=== PATIENT | female | born 1945 | race Caucasian/White ===

== ENCOUNTER 2022-03-19 19:47 | Inpatient (IN) | payer MEDICARE, BC ==
[2022-03-19 21:06] LABS: #Eosinphils 0.2 thou/uL (0.0-0.7); #Lymphocytes 1.9 thou/uL (1.20-3.40); #Monocytes 0.7 thou/uL (0.11-0.59); #Neutrophils 9.7 thou/uL (1.40-6.50); %Basophils 0.4 % (0.0-1.0); %Eosinophils 1.9 % (0.0-10.0); %Lymphocytes 14.8 % (21.0-51.0); %Monocytes 5.5 % (0.0-10.0); %Neutrophils 77.5 % (42.0-75.0); Hemoglobin 12.5 g/dL (12.0-16.0); Mean Corpuscular HGB CONC 31.7 g/dL (32.0-36.0); Mean Corpuscular Hemoglobin 31.2 pg (27.0-31.0); Mean Corpuscular Volume 98.4 fl (78.0-98.0); Mean Platelet Volume 7.1 fL (7.4-10.4); Platelet Count 387 10x3/uL (130-400); RBC Distribution Width 13.2 % (11.5-14.5); White Blood Cell (WBC) Count 12.5 10x3/uL (4.8-10.8)
[2022-03-19 21:24] LABS: ALT (SGPT) Less than 7 U/L (8-55); AST (SGOT) 13 U/L (5-34); Albumin 2.9 g/dL (3.4-4.8); Alkaline Phosphatase 85 U/L (40-110); Anion Gap 10 mmol/L (10-20); BUN (Urea Nitrogen) 8 mg/dL (9.8-20.1); Bilirubin, Total 0.6 mg/dL (0.2-1.2); Calc. Creatinine Clearance 0 mL/min (70-130); Calcium 8.9 mg/dL (7.8-10.44); Carbon Dioxide 25 mmol/L (23-31); Chloride 109 mmol/L (98-107); Estimated GFR 74; Globulin 3.6 g/dL (2.4-3.5); Glucose 82 mg/dL (83-110); Potassium 2.8 mmol/L (3.5-5.1); Protein, Total 6.5 g/dL (5.8-8.1); Sodium 141 mmol/L (136-145)
[2022-03-19 21:46] LABS: CKMB 0.7 ng/mL (0-6.6)
[2022-03-19] MEDS ORDERED: Magnesium 2 GM/50 ML BAG (IN WATER) ONE (21:59)
[2022-03-19] MEDS ORDERED: NS 0.9% w/ 40 MEQ KCL 1,000 ML IV SCH (22:15)
[2022-03-19 22:48] LABS: Bacteria/HPF 2+ HPF (None Seen); Bilirubin Negative (Negative); Blood, Urine Negative (Negative); Clarity Turbid (Clear); Glucose, Urine (Dipstick) Normal (Negative); Ketone, Urine Trace mg/dL (Negative); Leukocyte 75 Leu/uL (Negative); Nitrite Negative (Negative); Protein, Urine (Dipstick) 30 mg/dL (Neg-Trace); RBC/HPF 0-3 HPF (0-3); Specific Gravity, Urine 1.028 (1.002-1.036); Squamous Epithelial None Seen HPF (0-3); Urobilinogen Normal mg/dL (Less than 2); pH, Urine 5.5 (5.0-9.0)
[2022-03-19 22:55] LABS: Mucous/LPF 2+ LPF (<2+)
[2022-03-19] MEDS ORDERED: Ondansetron PF 4 MG/2 ML Vial IVP PRN (22:58)
[2022-03-19] MEDS ORDERED: Acetaminophen 650 MG Suppository PR PRN (22:58)
[2022-03-19] MEDS ORDERED: Dextrose 5 %-0.45 % NaCl 1,000 ML IV SCH (23:00)
[2022-03-19 23:24] LABS: Amphetamine Not Detected (NotDetected); Barbiturates Screen Not Detected (NotDetected); Benzodiazepine Screen Not Detected (NotDetected); Cocaine Metabolite Screen Not Detected (NotDetected); Methadone Not Detected (NotDetected); Methamphetamine Not Detected (NotDetected); Opiate Screen Not Detected (NotDetected); Oxycodone Screen Not Detected (NotDetected); Phencyclidine (PCP) Not Detected (NotDetected); THC/Cannabinoid Screen Not Detected (NotDetected); Tricyclic Screen Not Detected (NotDetected)
[2022-03-19] MEDS ORDERED: Cefepime 2 GM VIAL ONE (23:56)
[2022-03-20] MEDS ORDERED: Albumin 25% 25 GM/100 ML BOT IVPB SCH (00:30)
[2022-03-20 00:33] VITALS: BMI 29.7
[2022-03-20 00:44] LABS: Troponin I 0.065 ng/mL (< 0.028)
[2022-03-20] MEDS ORDERED: Vancomycin 1.5 GRAM/300 ML BAG 1.5 GM in Premix Bag 1 BAG IVPB SCH (00:45)
[2022-03-20 03:41] LABS: #Eosinphils 0.3 thou/uL (0.0-0.7); #Lymphocytes 1.6 thou/uL (1.20-3.40); #Monocytes 0.7 thou/uL (0.11-0.59); #Neutrophils 9.1 thou/uL (1.40-6.50); %Basophils 0.1 % (0.0-1.0); %Eosinophils 2.2 % (0.0-10.0); %Lymphocytes 13.6 % (21.0-51.0); %Monocytes 6.3 % (0.0-10.0); %Neutrophils 77.9 % (42.0-75.0); Hemoglobin 11.5 g/dL (12.0-16.0); Mean Corpuscular Hemoglobin 31.3 pg (27.0-31.0); Mean Platelet Volume 7.4 fL (7.4-10.4); Platelet Count 290 10x3/uL (130-400); RBC Distribution Width 13.5 % (11.5-14.5); Red Blood Cell (RBC) Count 3.67 mill/uL (4.20-5.40); White Blood Cell (WBC) Count 11.7 10x3/uL (4.8-10.8)
[2022-03-20 03:58] LABS: Troponin I 0.053 ng/mL (< 0.028)
[2022-03-20 04:00] LABS: Anion Gap 11 mmol/L (10-20); BUN (Urea Nitrogen) 8 mg/dL (9.8-20.1); Calc. Creatinine Clearance 82 mL/min (70-130); Calcium 8.2 mg/dL (7.8-10.44); Carbon Dioxide 18 mmol/L (23-31); Chloride 116 mmol/L (98-107); Estimated GFR 81; Glucose 89 mg/dL (83-110); Magnesium 2.4 mg/dL (1.6-2.6); Sodium 141 mmol/L (136-145)
[2022-03-20] MEDS ORDERED: Meropenem 1 GM in Sodium Chloride 0.9% 100 ML IVPB SCH ×3 (06:00→14:00)
[2022-03-20] MEDS ORDERED: Venlafaxine HCl XR 150 MG CAP PO SCH (09:00)
[2022-03-20] MEDS: Aspirin 81 mg Enteric Coated Tablet PO SCH (10:28)
[2022-03-20] MEDS: Bupropion 150 MG XL TAB PO SCH (10:28)
[2022-03-20] MEDS: Rivastigmine 9.5mg/24 Hour PATCH TOP SCH (10:34)
[2022-03-20] MEDS ORDERED: Sodium Chloride 0.9% 500 ML IV SCH ×2 (11:30→12:00)
[2022-03-20 12:34] LABS: #Eosinphils 0.2 thou/uL (0.0-0.7); #Lymphocytes 1.5 thou/uL (1.20-3.40); #Monocytes 0.5 thou/uL (0.11-0.59); #Neutrophils 7.6 thou/uL (1.40-6.50); %Basophils 0.2 % (0.0-1.0); %Eosinophils 2.5 % (0.0-10.0); %Lymphocytes 14.8 % (21.0-51.0); %Monocytes 5.4 % (0.0-10.0); %Neutrophils 77.1 % (42.0-75.0); Mean Corpuscular HGB CONC 31.2 g/dL (32.0-36.0); Mean Corpuscular Hemoglobin 30.8 pg (27.0-31.0); Mean Corpuscular Volume 98.6 fl (78.0-98.0); Platelet Count 336 10x3/uL (130-400); RBC Distribution Width 13.1 % (11.5-14.5); Red Blood Cell (RBC) Count 3.24 mill/uL (4.20-5.40); White Blood Cell (WBC) Count 9.9 10x3/uL (4.8-10.8)
[2022-03-20 12:39] LABS: Lactic Acid 1.1 mmol/L (0.5-2.2)
[2022-03-20 12:44] LABS: Anion Gap 9 mmol/L (10-20); BUN (Urea Nitrogen) 6 mg/dL (9.8-20.1); Calc. Creatinine Clearance 96 mL/min (70-130); Calcium 7.6 mg/dL (7.8-10.44); Carbon Dioxide 22 mmol/L (23-31); Chloride 114 mmol/L (98-107); Estimated GFR 92; Glucose 73 mg/dL (83-110); Magnesium 2.1 mg/dL (1.6-2.6); Sodium 142 mmol/L (136-145)
[2022-03-20 12:48] LABS: Phosphorus 1.8 mg/dL (2.3-4.7)
[2022-03-20] MEDS: Lactated Ringer's 1,000 ML IV SCH (13:41)
[2022-03-20] MEDS ORDERED: Potassium Phosphate 12 MMOL in Sodium Chloride 0.9% 100 ML IVPB SCH (16:45)
[2022-03-20] MEDS: Meropenem 1 GM in Sodium Chloride 0.9% 100 ML IVPB SCH (19:52)
[2022-03-20] MEDS ORDERED: Mirtazapine 15 MG Soltab PO SCH (21:00)
[2022-03-21] MEDS: Lactated Ringer's 1,000 ML IV SCH ×4 (01:36→23:03)
[2022-03-21] MEDS: Meropenem 1 GM in Sodium Chloride 0.9% 100 ML IVPB SCH ×3 (01:36→17:19)
[2022-03-21 05:55] LABS: #Eosinphils 0.2 thou/uL (0.0-0.7); #Lymphocytes 1.4 thou/uL (1.20-3.40); #Monocytes 0.4 thou/uL (0.11-0.59); #Neutrophils 5.5 thou/uL (1.40-6.50); %Basophils 0.2 % (0.0-1.0); %Lymphocytes 18.1 % (21.0-51.0); %Monocytes 5.5 % (0.0-10.0); %Neutrophils 73.2 % (42.0-75.0); Hemoglobin 10.6 g/dL (12.0-16.0); Mean Corpuscular HGB CONC 31.5 g/dL (32.0-36.0); Mean Corpuscular Hemoglobin 30.8 pg (27.0-31.0); Mean Corpuscular Volume 97.7 fl (78.0-98.0); Mean Platelet Volume 7.2 fL (7.4-10.4); Platelet Count 370 10x3/uL (130-400); RBC Distribution Width 13.1 % (11.5-14.5); Red Blood Cell (RBC) Count 3.46 mill/uL (4.20-5.40); White Blood Cell (WBC) Count 7.6 10x3/uL (4.8-10.8)
[2022-03-21 06:19] LABS: Anion Gap 10 mmol/L (10-20); BUN (Urea Nitrogen) 5 mg/dL (9.8-20.1); Calc. Creatinine Clearance 99 mL/min (70-130); Calcium 8.4 mg/dL (7.8-10.44); Carbon Dioxide 23 mmol/L (23-31); Chloride 113 mmol/L (98-107); Estimated GFR 93; Glucose 65 mg/dL (83-110); Magnesium 2.1 mg/dL (1.6-2.6); Potassium 3.5 mmol/L (3.5-5.1); Sodium 142 mmol/L (136-145)
[2022-03-21 08:22] LABS: Troponin I 0.054 ng/mL (< 0.028)
[2022-03-21] MEDS: Aspirin 81 mg Enteric Coated Tablet PO SCH (11:09)
[2022-03-21] MEDS: Bupropion 150 MG XL TAB PO SCH (11:10)
[2022-03-21] MEDS ORDERED: Venlafaxine HCl 37.5 MG TAB PO SCH (12:30)
[2022-03-21] MEDS ORDERED: buPROPion 75 MG TAB PO SCH (12:30)
[2022-03-21] MEDS ORDERED: Venlafaxine HCl XR 75 MG CAP PO SCH (13:00)
[2022-03-21] MEDS: Rivastigmine 9.5mg/24 Hour PATCH TOP SCH (13:17)
[2022-03-21] MEDS ORDERED: Meropenem 1 GM in Sodium Chloride 0.9% 100 ML IVPB SCH (14:00)
[2022-03-21] MEDS: Venlafaxine HCl 37.5 MG TAB PO SCH (20:26)
[2022-03-21] MEDS: buPROPion 75 MG TAB PO SCH (20:26)
[2022-03-22] MEDS: Meropenem 1 GM in Sodium Chloride 0.9% 100 ML IVPB SCH ×3 (01:51→18:15)
[2022-03-22 05:40] LABS: #Eosinphils 0.2 thou/uL (0.0-0.7); #Lymphocytes 1.6 thou/uL (1.20-3.40); #Monocytes 0.5 thou/uL (0.11-0.59); #Neutrophils 3.9 thou/uL (1.40-6.50); %Basophils 0.3 % (0.0-1.0); %Lymphocytes 24.9 % (21.0-51.0); %Monocytes 8.2 % (0.0-10.0); %Neutrophils 62.6 % (42.0-75.0); Hemoglobin 11.1 g/dL (12.0-16.0); Mean Corpuscular Hemoglobin 31.1 pg (27.0-31.0); Mean Corpuscular Volume 97.3 fl (78.0-98.0); Mean Platelet Volume 7.5 fL (7.4-10.4); Platelet Count 216 10x3/uL (130-400); RBC Distribution Width 13.2 % (11.5-14.5); Red Blood Cell (RBC) Count 3.57 mill/uL (4.20-5.40); White Blood Cell (WBC) Count 6.3 10x3/uL (4.8-10.8)
[2022-03-22 05:56] LABS: Anion Gap 11 mmol/L (10-20); BUN (Urea Nitrogen) 4 mg/dL (9.8-20.1); Calc. Creatinine Clearance 113 mL/min (70-130); Calcium 8.2 mg/dL (7.8-10.44); Carbon Dioxide 21 mmol/L (23-31); Chloride 109 mmol/L (98-107); Estimated GFR 96; Glucose 62 mg/dL (83-110); Magnesium 1.9 mg/dL (1.6-2.6); Potassium 3.1 mmol/L (3.5-5.1); Sodium 138 mmol/L (136-145)
[2022-03-22] MEDS ORDERED: Potassium Chloride 20 MEQ TAB PO SCH (09:00)
[2022-03-22] MEDS: buPROPion 75 MG TAB PO SCH ×2 (09:20→21:11)
[2022-03-22] MEDS: Venlafaxine HCl 37.5 MG TAB PO SCH ×2 (09:20→21:11)
[2022-03-22] MEDS: Aspirin 81 mg Enteric Coated Tablet PO SCH (09:20)
[2022-03-22] MEDS: Rivastigmine 9.5mg/24 Hour PATCH TOP SCH (09:21)
[2022-03-22] MEDS: Nystatin 500,000 UNITS/5 ML UDCUP SSW SCH ×3 (12:48→21:11)
[2022-03-22] MEDS: Lactated Ringer's 1,000 ML IV SCH (18:15)
[2022-03-23] MEDS: Meropenem 1 GM in Sodium Chloride 0.9% 100 ML IVPB SCH ×3 (02:13→17:45)
[2022-03-23] MEDS: buPROPion 75 MG TAB PO SCH ×2 (09:22→20:32)
[2022-03-23] MEDS: Aspirin 81 mg Enteric Coated Tablet PO SCH (09:22)
[2022-03-23] MEDS: Nystatin 500,000 UNITS/5 ML UDCUP SSW SCH ×4 (09:22→20:32)
[2022-03-23] MEDS: Venlafaxine HCl 37.5 MG TAB PO SCH ×2 (09:23→20:32)
[2022-03-23] MEDS: Rivastigmine 9.5mg/24 Hour PATCH TOP SCH (09:29)
[2022-03-24] MEDS: Meropenem 1 GM in Sodium Chloride 0.9% 100 ML IVPB SCH ×2 (01:01→09:11)
[2022-03-24] MEDS: Lactated Ringer's 1,000 ML IV SCH ×2 (01:01→03:34)
[2022-03-24] MEDS: Aspirin 81 mg Enteric Coated Tablet PO SCH (08:53)
[2022-03-24] MEDS: buPROPion 75 MG TAB PO SCH ×2 (08:53→21:32)
[2022-03-24] MEDS: Rivastigmine 9.5mg/24 Hour PATCH TOP SCH (08:53)
[2022-03-24] MEDS: Nystatin 500,000 UNITS/5 ML UDCUP SSW SCH ×4 (08:53→21:32)
[2022-03-24] MEDS: Venlafaxine HCl 37.5 MG TAB PO SCH (08:53)
[2022-03-24] MEDS ORDERED: Venlafaxine HCl 25 MG TAB PO SCH (21:00)
[2022-03-24] MEDS: Venlafaxine HCl 25 MG TAB PO SCH (21:32)
[2022-03-25 05:38] LABS: #Eosinphils 0.3 thou/uL (0.0-0.7); #Lymphocytes 1.6 thou/uL (1.20-3.40); #Monocytes 0.6 thou/uL (0.11-0.59); #Neutrophils 3.7 thou/uL (1.40-6.50); %Basophils 0.3 % (0.0-1.0); %Eosinophils 5.5 % (0.0-10.0); %Lymphocytes 25.1 % (21.0-51.0); %Monocytes 9.9 % (0.0-10.0); %Neutrophils 59.2 % (42.0-75.0); Hemoglobin 12.1 g/dL (12.0-16.0); Mean Corpuscular HGB CONC 31.8 g/dL (32.0-36.0); Mean Corpuscular Volume 97.3 fl (78.0-98.0); Mean Platelet Volume 6.9 fL (7.4-10.4); Platelet Count 369 10x3/uL (130-400); RBC Distribution Width 13.6 % (11.5-14.5); Red Blood Cell (RBC) Count 3.92 mill/uL (4.20-5.40); White Blood Cell (WBC) Count 6.3 10x3/uL (4.8-10.8)
[2022-03-25 05:59] LABS: Anion Gap 12 mmol/L (10-20); BUN (Urea Nitrogen) 6 mg/dL (9.8-20.1); Calc. Creatinine Clearance 105 mL/min (70-130); Calcium 8.7 mg/dL (7.8-10.44); Carbon Dioxide 22 mmol/L (23-31); Chloride 106 mmol/L (98-107); Estimated GFR 94; Glucose 73 mg/dL (83-110); Potassium 3.8 mmol/L (3.5-5.1); Sodium 136 mmol/L (136-145)
[2022-03-25] MEDS: buPROPion 75 MG TAB PO SCH ×2 (09:44→22:54)
[2022-03-25] MEDS: Venlafaxine HCl 37.5 MG TAB PO SCH (09:44)
[2022-03-25] MEDS: Rivastigmine 9.5mg/24 Hour PATCH TOP SCH (09:44)
[2022-03-25] MEDS: Aspirin 81 mg Enteric Coated Tablet PO SCH (09:44)
[2022-03-25] MEDS: Nystatin 500,000 UNITS/5 ML UDCUP SSW SCH ×2 (09:44→14:07)
[2022-03-25] MEDS: Venlafaxine HCl 25 MG TAB PO SCH (22:54)
[2022-03-26] MEDS ORDERED: Electrolyte Replacement Protocol 1 EACH FS SCH (08:30)
[2022-03-26] MEDS: Aspirin 81 mg Enteric Coated Tablet PO SCH (08:59)
[2022-03-26] MEDS: buPROPion 75 MG TAB PO SCH ×2 (09:00→21:00)
[2022-03-26] MEDS: Venlafaxine HCl 37.5 MG TAB PO SCH (09:01)
[2022-03-26] MEDS: Rivastigmine 9.5mg/24 Hour PATCH TOP SCH (09:01)
[2022-03-26] MEDS: Multivitamins, Adult 10 ML, Folic Acid 1 MG, Thiamine HCl 100 MG in Dextrose 5 %-0.45 %... IV SCH (15:50)
[2022-03-26] MEDS: Senokot S 8.6-50 MG TAB PO SCH (21:00)
[2022-03-27 07:03] LABS: #Eosinphils 0.3 thou/uL (0.0-0.7); #Lymphocytes 2.2 thou/uL (1.20-3.40); #Monocytes 0.6 thou/uL (0.11-0.59); #Neutrophils 2.9 thou/uL (1.40-6.50); %Basophils 0.7 % (0.0-1.0); %Eosinophils 5.7 % (0.0-10.0); %Lymphocytes 35.8 % (21.0-51.0); %Monocytes 9.3 % (0.0-10.0); %Neutrophils 48.5 % (42.0-75.0); Hemoglobin 11.2 g/dL (12.0-16.0); Mean Corpuscular HGB CONC 32.4 g/dL (32.0-36.0); Mean Corpuscular Hemoglobin 31.3 pg (27.0-31.0); Mean Corpuscular Volume 96.6 fl (78.0-98.0); Mean Platelet Volume 7.1 fL (7.4-10.4); Platelet Count 346 10x3/uL (130-400); Red Blood Cell (RBC) Count 3.59 mill/uL (4.20-5.40)
[2022-03-27 07:24] LABS: ALT (SGPT) 19 U/L (8-55); AST (SGOT) 28 U/L (5-34); Albumin 2.5 g/dL (3.4-4.8); Alkaline Phosphatase 72 U/L (40-110); Anion Gap 11 mmol/L (10-20); BUN (Urea Nitrogen) 7 mg/dL (9.8-20.1); Bilirubin, Total 0.5 mg/dL (0.2-1.2); Calc. Creatinine Clearance 104 mL/min (70-130); Calcium 8.5 mg/dL (7.8-10.44); Carbon Dioxide 22 mmol/L (23-31); Chloride 106 mmol/L (98-107); Estimated GFR 94; Globulin 3.1 g/dL (2.4-3.5); Glucose 70 mg/dL (83-110); Magnesium 1.9 mg/dL (1.6-2.6); Phosphorus 2.2 mg/dL (2.3-4.7); Potassium 3.3 mmol/L (3.5-5.1); Protein, Total 5.6 g/dL (5.8-8.1); Sodium 136 mmol/L (136-145)
[2022-03-27] MEDS ORDERED: Potassium Chloride 20 MEQ TAB PO SCH ×2 (08:00→08:15)
[2022-03-27] MEDS ORDERED: Magnesium 2 GM/50 ML(in water) 2 GM in Premix Bag 1 BAG IVPB SCH (09:00)
[2022-03-27] MEDS: Aspirin 81 mg Enteric Coated Tablet PO SCH (10:10)
[2022-03-27] MEDS: Senokot S 8.6-50 MG TAB PO SCH ×2 (10:10→20:54)
[2022-03-27] MEDS: buPROPion 75 MG TAB PO SCH ×2 (10:11→20:53)
[2022-03-27] MEDS: Multivitamins, Adult 10 ML, Folic Acid 1 MG, Thiamine HCl 100 MG in Dextrose 5 %-0.45 %... IV SCH (14:30)
[2022-03-28 06:36] LABS: #Eosinphils 0.3 thou/uL (0.0-0.7); #Lymphocytes 2.1 thou/uL (1.20-3.40); #Monocytes 0.6 thou/uL (0.11-0.59); #Neutrophils 4.6 thou/uL (1.40-6.50); %Basophils 0.4 % (0.0-1.0); %Eosinophils 4.5 % (0.0-10.0); %Monocytes 8.1 % (0.0-10.0); %Neutrophils 59.9 % (42.0-75.0); Hemoglobin 11.2 g/dL (12.0-16.0); Mean Corpuscular HGB CONC 32.4 g/dL (32.0-36.0); Mean Corpuscular Hemoglobin 31.3 pg (27.0-31.0); Mean Corpuscular Volume 96.4 fl (78.0-98.0); Platelet Count 356 10x3/uL (130-400); Red Blood Cell (RBC) Count 3.58 mill/uL (4.20-5.40); White Blood Cell (WBC) Count 7.6 10x3/uL (4.8-10.8)
[2022-03-28 06:58] LABS: Anion Gap 13 mmol/L (10-20); BUN (Urea Nitrogen) 5 mg/dL (9.8-20.1); Calc. Creatinine Clearance 102 mL/min (70-130); Calcium 8.5 mg/dL (7.8-10.44); Carbon Dioxide 20 mmol/L (23-31); Chloride 109 mmol/L (98-107); Estimated GFR 93; Glucose 70 mg/dL (83-110); Potassium 3.9 mmol/L (3.5-5.1); Sodium 138 mmol/L (136-145)
[2022-03-28 07:22] VITALS: BP 103/55; TEMP 98.4
[2022-03-28] MEDS: buPROPion 75 MG TAB PO SCH (09:00)
[2022-03-28] MEDS: Senokot S 8.6-50 MG TAB PO SCH (09:01)
== END 2022-03-28 12:23 | DRG 177 ==
LOC: ERS 19:47 → ERHOLD 22:36 → NEURO 03-20 02:53 → T4-A 03-25 15:57
PROVIDERS: ADMIT Internal Medicine; ATTEND Internal Medicine
DX: J69.0 Pneumonitis due to inhalation of food and vomit (principal); G93.41 Metabolic encephalopathy; N30.00 Acute cystitis without hematuria; B37.0 Candidal stomatitis; E44.0 Moderate protein-calorie malnutrition; I82.403 Acute embolism and thrombosis of unspecified deep veins of lower extremity, bilateral; Z66 Do not resuscitate; Z20.822 Contact with and (suspected) exposure to COVID-19; E78.5 Hyperlipidemia, unspecified; G20 Parkinson's disease; G30.9 Alzheimer's disease, unspecified; F02.80 Dementia in other diseases classified elsewhere, unspecified severity, without behavioral disturbance, psychotic disturbance, mood disturbance, and anxiety; F32.A Depression, unspecified; E83.42 Hypomagnesemia; E83.39 Other disorders of phosphorus metabolism; N18.2 Chronic kidney disease, stage 2 (mild); D53.9 Nutritional anemia, unspecified; E87.6 Hypokalemia; E86.0 Dehydration; G93.89 Other specified disorders of brain; R13.10 Dysphagia, unspecified; Z88.0 Allergy status to penicillin; Z88.1 Allergy status to other antibiotic agents; Z88.2 Allergy status to sulfonamides; Z79.899 Other long term (current) drug therapy; Z79.82 Long term (current) use of aspirin; Z68.29 Body mass index [BMI] 29.0-29.9, adult
CPT/HCPCS: 36415; 36416; 51701; 70450; 70551; 71045; 80048; 80053; 80306; 81003; 81015; 82553; 82607; 83605; 83735; 84100; 84484; 85025; 87040; 87086; 87811; 93005; 93010; 93970; 95712; 95819; 95957; 96374; 96375; J0692; J1650; J2185; J2405; J3370; J3411; J3475; J3480; J3490; J7030; J7042; J7120; P9047; U0003; U0005

== ENCOUNTER 2022-05-29 18:39 | Inpatient (IN) | payer MEDICARE, BC ==
[~2022-05-29 18:39] MED LIST: Iopamidol-370 76% 500 ML MDV (1 ML CHARGE) ONE; cefTRIAXone\\ROCEPHIN 1 GM in Sodium Chloride 0.9% 100 ML IVPB SCH
[2022-05-29 19:30] LABS: #Lymphocytes 0.8 thou/uL (1.20-3.40); #Monocytes 0.7 thou/uL (0.11-0.59); #Neutrophils 4.7 thou/uL (1.40-6.50); %Basophils 0.6 % (0.0-1.0); %Eosinophils 0.7 % (0.0-10.0); %Lymphocytes 12.8 % (21.0-51.0); %Neutrophils 74.9 % (42.0-75.0); Hemoglobin 12.6 g/dL (12.0-16.0); Mean Corpuscular Hemoglobin 31.5 pg (27.0-31.0); Mean Corpuscular Volume 95.4 fl (78.0-98.0); Mean Platelet Volume 7.5 fL (7.4-10.4); Platelet Count 265 10x3/uL (130-400); Red Blood Cell (RBC) Count 3.98 mill/uL (4.20-5.40); White Blood Cell (WBC) Count 6.2 10x3/uL (4.8-10.8)
[2022-05-29] MEDS ORDERED: Cefepime 2 GM VIAL ONE (19:36)
[2022-05-29 19:46] LABS: INR-International Normal Ratio 1.1; PTT 27.1 sec (22.9-36.1); Prothrombin Time 14.3 sec (12.0-14.7)
[2022-05-29 19:58] LABS: Actual Bicarbonate (HCO3v) 25 mEq/L (22-28); Base Excess 0.5 mEq/L (-2.0 to +3.0); Calcium, Ionized (venous) 1.18 mmol/L (1.16-1.32); Chloride (VBG) 107 mmol/L (98-106); Hemoglobin (Hb) 13.4 g/dL (11.7-16.1); Potassium (VBG) 4.03 mmol/L (3.70-5.30); Sodium 145.9 mmol/L (133-146); pH (venous) 7.42 (7.32-7.43)
[2022-05-29 20:10] LABS: ALT (SGPT) 30 U/L (8-55); AST (SGOT) 43 U/L (5-34); Albumin 3.6 g/dL (3.4-4.8); Alkaline Phosphatase 71 U/L (40-110); Anion Gap 13 mmol/L (10-20); BUN (Urea Nitrogen) 11 mg/dL (9.8-20.1); Bilirubin, Total 0.2 mg/dL (0.2-1.2); CK (CPK) 71 U/L (29-168); Calc. Creatinine Clearance 0 mL/min (70-130); Calcium 9.3 mg/dL (7.8-10.44); Carbon Dioxide 24 mmol/L (23-31); Chloride 110 mmol/L (98-107); Estimated GFR 74; Globulin 3.1 g/dL (2.4-3.5); Glucose 95 mg/dL (83-110); Potassium 4.2 mmol/L (3.5-5.1); Protein, Total 6.7 g/dL (5.8-8.1); Sodium 143 mmol/L (136-145)
[2022-05-29] MEDS ORDERED: Acetaminophen 650 MG Suppository ONE (20:12)
[2022-05-29 21:10] LABS: Bilirubin Negative (Negative); Blood, Urine 2+ (Negative); Clarity Turbid (Clear); Glucose, Urine (Dipstick) Normal (Negative); Ketone, Urine Negative (Negative); Leukocyte 25 Leu/uL (Negative); Nitrite 2+ (Negative); Protein, Urine (Dipstick) 30 mg/dL (Neg-Trace); Specific Gravity, Urine 1.021 (1.002-1.036); Squamous Epithelial None Seen HPF (0-3); Urobilinogen Normal mg/dL (Less than 2); pH, Urine 7.5 (5.0-9.0)
[2022-05-29 21:11] LABS: Bacteria/HPF 1+ HPF (None Seen)
[2022-05-29] MEDS ORDERED: Acetaminophen 325 MG TAB PO PRN (22:26)
[2022-05-29 23:24] LABS: SARS-CoV-2 NAA Rapid Test DETECTED (NotDetected)
[2022-05-30] MEDS: Lactated Ringer's 1,000 ML IV SCH ×3 (00:56→13:42)
[2022-05-30 01:26] VITALS: BMI 25.9
[2022-05-30] MEDS: cefTRIAXone\\ROCEPHIN 1 GM in Sodium Chloride 0.9% 100 ML IVPB SCH (05:21)
[2022-05-30 09:01] LABS: Anion Gap 10 mmol/L (10-20); BUN (Urea Nitrogen) 9 mg/dL (9.8-20.1); Calc. Creatinine Clearance 80 mL/min (70-130); Calcium 8.1 mg/dL (7.8-10.44); Carbon Dioxide 21 mmol/L (23-31); Chloride 114 mmol/L (98-107); Estimated GFR 91; Glucose 68 mg/dL (83-110); Potassium 3.7 mmol/L (3.5-5.1); Sodium 141 mmol/L (136-145)
[2022-05-30] MEDS: Acetaminophen 650 MG Suppository PR PRN ×2 (09:06→16:19)
[2022-05-30 09:30] LABS: #Lymphocytes 1.4 thou/uL (1.20-3.40); #Monocytes 0.5 thou/uL (0.11-0.59); #Neutrophils 2.3 thou/uL (1.40-6.50); %Basophils 0.2 % (0.0-1.0); %Eosinophils 0.5 % (0.0-10.0); %Lymphocytes 33.6 % (21.0-51.0); %Monocytes 12.2 % (0.0-10.0); %Neutrophils 53.5 % (42.0-75.0); Hemoglobin 10.9 g/dL (12.0-16.0); Mean Corpuscular HGB CONC 31.5 g/dL (32.0-36.0); Mean Corpuscular Hemoglobin 31.1 pg (27.0-31.0); Mean Corpuscular Volume 98.7 fl (78.0-98.0); Mean Platelet Volume 7.2 fL (7.4-10.4); Platelet Count 226 10x3/uL (130-400); RBC Distribution Width 14.9 % (11.5-14.5); Red Blood Cell (RBC) Count 3.51 mill/uL (4.20-5.40); White Blood Cell (WBC) Count 4.2 10x3/uL (4.8-10.8)
[2022-05-31] MEDS: Lactated Ringer's 1,000 ML IV SCH ×2 (01:12→08:19)
[2022-05-31] MEDS: cefTRIAXone\\ROCEPHIN 1 GM in Sodium Chloride 0.9% 100 ML IVPB SCH (04:41)
[2022-05-31 08:09] LABS: #Eosinphils 0.1 thou/uL (0.0-0.7); #Lymphocytes 1.5 thou/uL (1.20-3.40); #Monocytes 0.5 thou/uL (0.11-0.59); #Neutrophils 2.2 thou/uL (1.40-6.50); %Basophils 0.1 % (0.0-1.0); %Eosinophils 1.4 % (0.0-10.0); %Lymphocytes 34.6 % (21.0-51.0); %Monocytes 11.2 % (0.0-10.0); %Neutrophils 52.7 % (42.0-75.0); Hemoglobin 12.7 g/dL (12.0-16.0); Mean Corpuscular HGB CONC 32.8 g/dL (32.0-36.0); Mean Corpuscular Volume 97.4 fl (78.0-98.0); Mean Platelet Volume 7.7 fL (7.4-10.4); Platelet Count 206 10x3/uL (130-400); RBC Distribution Width 14.6 % (11.5-14.5); Red Blood Cell (RBC) Count 3.97 mill/uL (4.20-5.40); White Blood Cell (WBC) Count 4.2 10x3/uL (4.8-10.8)
[2022-05-31 08:30] LABS: Anion Gap 16 mmol/L (10-20); BUN (Urea Nitrogen) 6 mg/dL (9.8-20.1); Calc. Creatinine Clearance 93 mL/min (70-130); Calcium 8.5 mg/dL (7.8-10.44); Carbon Dioxide 19 mmol/L (23-31); Chloride 108 mmol/L (98-107); Estimated GFR 95; Sodium 139 mmol/L (136-145)
[2022-05-31 08:41] LABS: Glucose 49 mg/dL (83-110)
[2022-05-31] MEDS ORDERED: Dextrose 10% in Water 250 ML IV PRN (09:00)
[2022-05-31] MEDS ORDERED: Dextrose 5%-Lactated Ringers 1,000 ML IV SCH ×2 (10:00→14:00)
[2022-05-31] MEDS: Nystatin 500,000 UNITS/5 ML UDCUP SSW SCH ×3 (14:08→20:02)
[2022-06-01] MEDS ORDERED: Dextrose 5%-Lactated Ringers 1,000 ML IV SCH (05:00)
[2022-06-01] MEDS: cefTRIAXone\\ROCEPHIN 1 GM in Sodium Chloride 0.9% 100 ML IVPB SCH (05:40)
[2022-06-01 07:44] LABS: #Eosinphils 0.2 thou/uL (0.0-0.7); #Lymphocytes 1.4 thou/uL (1.20-3.40); #Monocytes 0.4 thou/uL (0.11-0.59); #Neutrophils 1.5 thou/uL (1.40-6.50); %Basophils 0.4 % (0.0-1.0); %Eosinophils 5.7 % (0.0-10.0); %Lymphocytes 40.1 % (21.0-51.0); %Monocytes 11.7 % (0.0-10.0); %Neutrophils 42.1 % (42.0-75.0); Mean Corpuscular HGB CONC 31.8 g/dL (32.0-36.0); Mean Corpuscular Hemoglobin 30.8 pg (27.0-31.0); Mean Corpuscular Volume 96.6 fl (78.0-98.0); Mean Platelet Volume 7.6 fL (7.4-10.4); Platelet Count 249 10x3/uL (130-400); RBC Distribution Width 14.6 % (11.5-14.5); Red Blood Cell (RBC) Count 4.21 mill/uL (4.20-5.40); White Blood Cell (WBC) Count 3.5 10x3/uL (4.8-10.8)
[2022-06-01 08:04] LABS: Anion Gap 11 mmol/L (10-20); BUN (Urea Nitrogen) Less than 4 mg/dL (9.8-20.1); Calc. Creatinine Clearance 89 mL/min (70-130); Calcium 8.4 mg/dL (7.8-10.44); Carbon Dioxide 24 mmol/L (23-31); Chloride 108 mmol/L (98-107); Estimated GFR 93; Glucose 80 mg/dL (83-110); Potassium 3.1 mmol/L (3.5-5.1); Sodium 140 mmol/L (136-145)
[2022-06-01] MEDS ORDERED: Senokot S 8.6-50 MG TAB PO PRN (08:15)
[2022-06-01] MEDS ORDERED: Potassium Chloride 20 MEQ TAB PO SCH (09:00)
[2022-06-01] MEDS ORDERED: Apixaban 5 MG TAB PO SCH (09:00)
[2022-06-01] MEDS: buPROPion 75 MG TAB PO SCH ×2 (10:18→21:04)
[2022-06-01] MEDS: Nystatin 500,000 UNITS/5 ML UDCUP SSW SCH ×4 (10:18→21:04)
[2022-06-01] MEDS: Calcium Carbonate 600 MG + Vit D TAB PO SCH ×3 (10:18→23:50)
[2022-06-01] MEDS: Multivitamin W/ Minerals 1 TAB PO SCH (10:18)
[2022-06-01] MEDS ORDERED: lamoTRIgine 100 MG TAB PO SCH (21:00)
[2022-06-01] MEDS ORDERED: Mirtazapine 15 MG TAB PO SCH (21:00)
[2022-06-01] MEDS: Apixaban 5 MG TAB PO SCH (21:04)
[2022-06-02] MEDS ORDERED: FLU VACC QS2022-23(65YR UP)/PF 240 MCG/0.7 ML SYRINGE IM ONE (01:45)
[2022-06-02] MEDS: cefTRIAXone\\ROCEPHIN 1 GM in Sodium Chloride 0.9% 100 ML IVPB SCH (05:38)
[2022-06-02] MEDS: Calcium Carbonate 600 MG + Vit D TAB PO SCH ×2 (05:38→12:30)
[2022-06-02 06:04] LABS: Hemoglobin 13.8 g/dL (12.0-16.0); Mean Corpuscular HGB CONC 31.5 g/dL (32.0-36.0); Mean Corpuscular Hemoglobin 30.4 pg (27.0-31.0); Mean Corpuscular Volume 96.4 fl (78.0-98.0); Mean Platelet Volume 7.6 fL (7.4-10.4); Platelet Count 241 10x3/uL (130-400); RBC Distribution Width 14.5 % (11.5-14.5); Red Blood Cell (RBC) Count 4.52 mill/uL (4.20-5.40)
[2022-06-02 06:20] LABS: Anion Gap 13 mmol/L (10-20); BUN (Urea Nitrogen) Less than 4 mg/dL (9.8-20.1); Calc. Creatinine Clearance 82 mL/min (70-130); Calcium 9.2 mg/dL (7.8-10.44); Carbon Dioxide 23 mmol/L (23-31); Chloride 111 mmol/L (98-107); Estimated GFR 92; Glucose 81 mg/dL (83-110); Potassium 4.1 mmol/L (3.5-5.1); Sodium 143 mmol/L (136-145)
[2022-06-02 06:59] LABS: Eosinophils 2 % (0-10); Lymphocytes 55 % (21-51); MDiff Complete? YES; Monocytes 16 % (0-10); Neutrophil 27 % (42-75); Platelet Morphology Comment Appears Adequate; RBC Morphology Normal
[2022-06-02 07:47] VITALS: BP 127/78; TEMP 98.2
[2022-06-02] MEDS: Multivitamin W/ Minerals 1 TAB PO SCH (09:25)
[2022-06-02] MEDS: Apixaban 5 MG TAB PO SCH (09:25)
[2022-06-02] MEDS: buPROPion 75 MG TAB PO SCH (09:25)
[2022-06-02] MEDS: Nystatin 500,000 UNITS/5 ML UDCUP SSW SCH ×2 (09:25→14:02)
[2022-06-02 11:34] LABS: SARS-CoV-2 NAA Rapid Test DETECTED (NotDetected)
== END 2022-06-02 15:10 | DRG 871 ==
LOC: ERS 18:39 → T4-B 22:38
PROVIDERS: ADMIT Family Medicine; ATTEND Family Medicine
PROC: 3E03329 Introduction of Other Anti-infective into Peripheral Vein, Percutaneous Approach (ICD-10-PCS; principal; 2022-05-29)
PROC: 8E0ZXY6 Isolation (ICD-10-PCS; 2022-05-29)
DX: A41.9 Sepsis, unspecified organism (principal); G93.41 Metabolic encephalopathy; U07.1 COVID-19; N39.0 Urinary tract infection, site not specified; Z66 Do not resuscitate; G30.9 Alzheimer's disease, unspecified; F02.80 Dementia in other diseases classified elsewhere, unspecified severity, without behavioral disturbance, psychotic disturbance, mood disturbance, and anxiety; E86.0 Dehydration; F31.9 Bipolar disorder, unspecified; K21.9 Gastro-esophageal reflux disease without esophagitis; R13.10 Dysphagia, unspecified; Z28.21 Immunization not carried out because of patient refusal; Z86.718 Personal history of other venous thrombosis and embolism; Z88.1 Allergy status to other antibiotic agents; Z88.0 Allergy status to penicillin; Z88.2 Allergy status to sulfonamides; Z79.899 Other long term (current) drug therapy; Z79.01 Long term (current) use of anticoagulants
CPT/HCPCS: 36415; 36416; 51701; 70450; 71045; 71260; 74177; 80048; 80053; 81003; 81015; 82550; 82805; 83605; 83880; 84484; 85025; 85610; 85730; 87040; 87086; 93005; 94760; 96374; 96375; J0692; J0696; J1650; J3490; J7120; Q9967; U0002

== ENCOUNTER 2022-10-29 20:46 | Emergency (ER) | payer MEDICARE, BC ==
[2022-10-29 21:37] LABS: #Basophils 0.1 thou/uL (0.0-0.2); #Eosinphils 0.2 thou/uL (0.0-0.7); #Monocytes 0.7 thou/uL (0.11-0.59); #Neutrophils 4.8 thou/uL (1.40-6.50); %Basophils 0.6 % (0.0-1.0); %Eosinophils 2.7 % (0.0-10.0); %Lymphocytes 25.9 % (21.0-51.0); %Monocytes 9.3 % (0.0-10.0); %Neutrophils 61.1 % (42.0-75.0); Hematocrit 41.9 % (36.0-47.0); Hemoglobin 13.6 g/dL (12.0-16.0); Mean Corpuscular HGB CONC 32.5 g/dL (32.0-36.0); Mean Corpuscular Hemoglobin 29.7 pg (27.0-31.0); Mean Corpuscular Volume 91.5 fl (78.0-98.0); Mean Platelet Volume 9.6 fL (7.4-10.4); Platelet Count 277 10x3/uL (130-400); RBC Distribution Width 13.9 % (11.5-14.5); Red Blood Cell (RBC) Count 4.58 mill/uL (4.20-5.40); White Blood Cell (WBC) Count 7.8 10x3/uL (4.8-10.8)
[2022-10-29 21:50] LABS: INR-International Normal Ratio 1.1; Prothrombin Time 14.6 sec (12.0-14.7)
[2022-10-29 21:51] LABS: PTT 28.9 sec (22.9-36.1)
[2022-10-29 22:02] LABS: ALT (SGPT) Less than 7 U/L (8-55); AST (SGOT) 20 U/L (5-34); Alkaline Phosphatase 108 U/L (40-110); Anion Gap 11 mmol/L (10-20); BUN (Urea Nitrogen) 16 mg/dL (9.8-20.1); Bilirubin, Total 0.3 mg/dL (0.2-1.2); Calc. Creatinine Clearance 0 mL/min (70-130); Calcium 9.9 mg/dL (7.8-10.44); Carbon Dioxide 22 mmol/L (23-31); Chloride 108 mmol/L (98-107); Estimated GFR 70; Globulin 3.1 g/dL (2.4-3.5); Glucose 80 mg/dL (83-110); Potassium 3.2 mmol/L (3.5-5.1); Protein, Total 7.1 g/dL (5.8-8.1); Sodium 138 mmol/L (136-145)
[2022-10-29] MEDS ORDERED: HYDROcodone/Acetaminophen 5/325 mg Tablet ONE (23:57)
== END 2022-10-30 00:38 | disposition home or self-care (01) ==
LOC: ERS 20:46
DX: S32.10XA Unspecified fracture of sacrum, initial encounter for closed fracture (principal); W06.XXXA Fall from bed, initial encounter; K21.9 Gastro-esophageal reflux disease without esophagitis; Z79.899 Other long term (current) drug therapy
CPT/HCPCS: 36415; 70450; 71045; 72170; 80053; 85025; 85610; 85730; 93005

== ENCOUNTER 2022-11-02 21:48 | Emergency (ER) | payer MEDICARE, BC ==
[2022-11-02] MEDS ORDERED: Acetaminophen 500 MG TAB ONE (21:57)
== END 2022-11-02 23:30 ==
LOC: ERS 21:48
DX: S76.012A Strain of muscle, fascia and tendon of left hip, initial encounter (principal); S46.012A Strain of muscle(s) and tendon(s) of the rotator cuff of left shoulder, initial encounter; E78.5 Hyperlipidemia, unspecified; K21.9 Gastro-esophageal reflux disease without esophagitis; W18.30XA Fall on same level, unspecified, initial encounter; Z79.01 Long term (current) use of anticoagulants